=== PATIENT | male | born 1995 | race Caucasian/White ===

== ENCOUNTER 2024-11-23 16:11 | Inpatient (IN) | payer OTHER ==
[~2024-11-23] VITALS: Ht 182.9 cm; Wt 105.6 kg
[2024-11-23 17:08] LABS: PLATELET COUNT (AUTO) 302 K/uL (150-450); RED BLOOD CELL COUNT(AUTO) 5.11 MIL/uL (4.50-5.90); RED CELL DISTRIBUTION WIDTH 13.9 % (11.5-14.5); WHITE BLOOD COUNT (AUTO) 9.0 K/uL (4.5-11.0)
[2024-11-23 17:14] LABS: CALCIUM, TOTAL 9.4 mg/dL (8.8-10.5); CREATININE 1.05 mg/dL (0.60-1.30); GLOMERULAR FILTR. RATE CALC > 60 mL/min (>60); GLUCOSE,RANDOM 105 mg/dL (70-110); SODIUM SERUM 140 mmol/L (136-145); UREA NITROGEN, BLOOD 7 mg/dL (7-18)
[2024-11-23 17:19] LABS: ASPARTATE AMINOTRANSFERASE 22.0 U/L (15-37); TOTAL PROTEIN, SERUM 8.3 g/dL (6.4-8.2)
[2024-11-23 17:21] LABS: TROPONIN I-HIGH SENSITIVITY 6 ng/L (<76)
[2024-11-23] MEDS: ACETAMINOPHEN 500 MG TABLET PO ONE (18:06)
[2024-11-23] MEDS ORDERED: ACETAMINOPHEN 325 MG TABLET PO PRN (19:00)
[2024-11-23] MEDS ORDERED: ONDANSETRON HCL 4 MG/2 ML VIAL IVP PRN (19:00)
[2024-11-23] MEDS: DOCUSATE SODIUM 100 MG CAPSULE PO SCH (20:30)
[2024-11-23 20:39] LABS: TROPONIN I-HIGH SENSITIVITY 7 ng/L (<76)
[2024-11-23 22:23] VITALS: BP 138/93; PULSE 84; RESP 18; TEMP 99.1; O2SAT 97
[2024-11-24 00:25] VITALS: BP 122/93; PULSE 86; RESP 17; TEMP 97.9; O2SAT 99
[2024-11-24] MEDS: HEPARIN SODIUM,PORCINE 5,000 UNITS/ML VIAL SQ SCH (00:26)
[2024-11-24 05:01] VITALS: BP 136/95; PULSE 85; RESP 18; TEMP 97.9; O2SAT 98
[2024-11-24 06:15] LABS: PLATELET COUNT (AUTO) 281 K/uL (150-450); RED BLOOD CELL COUNT(AUTO) 4.96 MIL/uL (4.50-5.90); RED CELL DISTRIBUTION WIDTH 13.8 % (11.5-14.5); WHITE BLOOD COUNT (AUTO) 6.8 K/uL (4.5-11.0)
[2024-11-24 06:29] LABS: CALCIUM, TOTAL 9.3 mg/dL (8.8-10.5); CREATININE 1.11 mg/dL (0.60-1.30); GLOMERULAR FILTR. RATE CALC > 60 mL/min (>60); GLUCOSE,RANDOM 102 mg/dL (70-110); SODIUM SERUM 138 mmol/L (136-145); UREA NITROGEN, BLOOD 8 mg/dL (7-18)
[2024-11-24 08:00] VITALS: BP 139/100; PULSE 84; RESP 18; TEMP 98.6; O2SAT 98
[2024-11-24 11:43] VITALS: BP 129/97; PULSE 88; RESP 18; TEMP 97.7; O2SAT 98
[2024-11-24 15:51] VITALS: BP 135/93; PULSE 87; RESP 19; TEMP 97.9; O2SAT 98
[2024-11-24 20:00] VITALS: BP 134/97; PULSE 97; RESP 18; TEMP 98.6; O2SAT 97
[2024-11-25] VITALS: BP 126/94; PULSE 78; RESP 18; TEMP 97.7; O2SAT 97
[2024-11-25] MEDS: ZOLPIDEM TARTRATE 5 MG TABLET PO PRN (01:01)
[2024-11-25 04:00] VITALS: BP 136/92; PULSE 80; RESP 18; TEMP 98.1; O2SAT 100
[2024-11-25 08:14] VITALS: BP 139/94; PULSE 78; RESP 18; TEMP 97.7; O2SAT 99
[2024-11-25] MEDS ORDERED: AMLO-258 PO (11:56)
[2024-11-25] MEDS ORDERED: CARV12.580 PO (11:57)
[2024-11-25 12:46] VITALS: BP 137/94; PULSE 81; RESP 18; TEMP 98.1; O2SAT 99
== END 2024-11-25 14:10 | DRG 305 ==
LOC: EMS 16:11 → UNDOADMIN 18:53 → EDH 18:53 → 5S 22:05
PROVIDERS: ADMIT Internal Medicine; ATTEND Internal Medicine
DX: I16.0 Hypertensive urgency (principal)
CPT/HCPCS: 71045; 80048; 80076; 83735; 84484; 85025; 93005; 93306; 99285; J1644; 36415-L1; 36415-TC